=== PATIENT | female | born 1975 | race Caucasian/White ===

== ENCOUNTER 2020-01-13 21:32 | Inpatient (IN) | payer MEDICAID, OTHER ==
[~2020-01-13] VITALS: Ht 160 cm; Wt 57.9 kg
[2020-01-13] MEDS ORDERED: KETOROLAC 30 MG/1 ML ONE (21:49)
[2020-01-13] MEDS ORDERED: ONDANSETRON 2MG/ML, 2ML ONE (21:50)
[2020-01-13] MEDS ORDERED: MORPHINE SULFATE 4 MG/ML, 1ML ONE (21:50)
[2020-01-13] MEDS ORDERED: MORPHINE SULFATE 4 MG/ML, 1ML IVPush PRN (22:00)
[2020-01-13] MEDS ORDERED: SODIUM CHLORIDE FLUSH 10ML SYR IVF ONE (22:00)
[2020-01-13] MEDS ORDERED: ONDANSETRON 2MG/ML, 2ML IVPush ONE (22:00)
[2020-01-13] MEDS ORDERED: KETOROLAC 30 MG/1 ML IVPush ONE (22:00)
[2020-01-13] MEDS ORDERED: SODIUM CHLORIDE 0.9% 1,000ML IVBOLUS ONE (22:00)
[2020-01-13 22:11] LABS: BASOPHILS # (AUTO) 0.02 x10^3/uL (0-0.1); BASOPHILS % (AUTO) 0 % (0-1); EOSINOPHILS # (AUTO) 0.47 x10^3/uL (0-0.4); EOSINOPHILS % (AUTO) 3 % (1-7); LYMPHOCYTES # (AUTO) 1.52 x10^3/uL (1-3.4); LYMPHOCYTES % (AUTO) 11 % (22-44); MD NO; MEAN CORPUSCULAR HEMOGLOBIN 30.8 pg (27.0-34.8); MEAN CORPUSCULAR HGB CONC 33.7 g/dL (32.4-35.8); MEAN CORPUSCULAR VOLUME 91.5 fL (80-100); MEAN PLATELET VOLUME 7.6 fL (7.4-10.4); MONOCYTES # (AUTO) 0.95 x10^3/uL (0.2-0.8); MONOCYTES % (AUTO) 7 % (2-9); NEUTROPHILS # (AUTO) 10.63 x10^3/uL (1.8-6.8); NEUTROPHILS % (AUTO) 78 % (42-75); PLATELET COUNT 424 x10^3/uL (130-400); RED BLOOD COUNT 4.17 x10^6/uL (3.82-5.3); RED CELL DISTRIBUTION WIDTH 13.4 % (9.6-15.2)
[2020-01-13 22:23] LABS: MICROSCOPIC NOT IND
[2020-01-13 22:27] LABS: ALANINE AMINOTRANSFERASE 16 U/L (12-78); ALBUMIN 3.5 g/dL (3.4-5.0); ANION GAP 8 mmol/L (5-15); CHLORIDE 104 mmol/L (98-107); CREATININE 0.61 mg/dL (0.55-1.02)
--- NOTE | 2020-01-13 22:28 | NUR ---
THIS IS A 44 YO F W/ C/O LT FLANK PAIN 08/03 THAT STARTED THIS MORNING. DENIES N/V/D. PT IS TACHYCARDIC, OTHER VS WDL, NADN. PIV STARTED, LABS DRAWN, PT MEDICATED PER EMAR. PT RESTING ON GURNEY W/ CALL LIGHT IN REACH. AWAITING CT.
[2020-01-13 22:31] LABS: ALKALINE PHOSPHATASE 84 U/L (45-117); BILIRUBIN,TOTAL 0.4 mg/dL (0.2-1.0); TOTAL PROTEIN 8.7 g/dL (6.4-8.2)
[2020-01-13 22:43] LABS: CULTURE INDICATED? NO
[2020-01-13] MEDS ORDERED: OMNIPAQUE 350 MG/ML, 100ML BOTTLE ONE (23:23)
--- NOTE | 2020-01-13 23:33 | NUR ---
PT AMBULATED TO THE BR W/ A STEADY GAIT.
[2020-01-14] MEDS ORDERED: PIPERACILLIN/TAZO/PMX 3.375GM 50 ML IV ONE
[2020-01-14] MEDS ORDERED: MORPHINE SULFATE 4 MG/ML, 1ML ONE (01:05)
[2020-01-14] MEDS ORDERED: PIPERACILLIN/TAZO/PMX 3.375GM 50 ML ONE (01:29)
[2020-01-14] MEDS: PIPERACILLIN/TAZO/PMX 3.375GM 50 ML IV SCH ×4 (01:30→19:32)
[2020-01-14] MEDS ORDERED: VANCOMYCIN PER PHARMACY MC PRN ×2 (01:30)
[2020-01-14] MEDS ORDERED: VANCOMYCIN PMX 1GM/200ML 200 ML IV ONE (01:30)
[2020-01-14 03:59] VITALS: BP 98/63
[2020-01-14] MEDS ORDERED: PHARMACOKINETIC MONITORING MC PRN (04:00)
[2020-01-14] MEDS: morphine SULFATE 10 MG/ML, 1ML IVPush PRN (05:11)
[2020-01-14 05:23] LABS: BASOPHILS # (AUTO) 0.06 x10^3/uL (0-0.1); BASOPHILS % (AUTO) 1 % (0-1); EOSINOPHILS # (AUTO) 0.76 x10^3/uL (0-0.4); EOSINOPHILS % (AUTO) 7 % (1-7); LYMPHOCYTES # (AUTO) 1.88 x10^3/uL (1-3.4); LYMPHOCYTES % (AUTO) 17 % (22-44); MD NO; MEAN CORPUSCULAR HEMOGLOBIN 30.5 pg (27.0-34.8); MEAN CORPUSCULAR HGB CONC 33.6 g/dL (32.4-35.8); MEAN CORPUSCULAR VOLUME 90.7 fL (80-100); MEAN PLATELET VOLUME 7.5 fL (7.4-10.4); MONOCYTES # (AUTO) 1.15 x10^3/uL (0.2-0.8); MONOCYTES % (AUTO) 11 % (2-9); NEUTROPHILS # (AUTO) 6.98 x10^3/uL (1.8-6.8); NEUTROPHILS % (AUTO) 65 % (42-75); PLATELET COUNT 352 x10^3/uL (130-400); RED BLOOD COUNT 3.82 x10^6/uL (3.82-5.3); RED CELL DISTRIBUTION WIDTH 13.3 % (9.6-15.2)
[2020-01-14 05:35] LABS: ANION GAP 4 mmol/L (5-15); CALCIUM 8.5 mg/dL (8.5-10.1); CHLORIDE 109 mmol/L (98-107); CREATININE 0.55 mg/dL (0.55-1.02)
[2020-01-14] MEDS: SENNA/DOCUSATE TABLET PO SCH (08:41)
[2020-01-14] MEDS: KETOROLAC 30 MG/1 ML IV PRN ×3 (08:41→20:19)
[2020-01-14 08:50] VITALS: BP 86/60
[2020-01-14] MEDS: ACETAMINOPHEN 325 MG TABLET PO PRN ×4 (09:03→23:34)
[2020-01-14] MEDS: VANCOMYCIN PMX 1GM/200ML 200 ML IV SCH (14:28)
[2020-01-14 14:36] VITALS: BP 96/60
[2020-01-14 19:36] VITALS: BP 102/67
[2020-01-15] MEDS: PIPERACILLIN/TAZO/PMX 3.375GM 50 ML IV SCH ×4 (01:30→20:34)
[2020-01-15] MEDS: KETOROLAC 30 MG/1 ML IV PRN ×4 (01:30→23:06)
[2020-01-15 01:34] VITALS: BP 95/49
[2020-01-15] MEDS: morphine SULFATE 10 MG/ML, 1ML IVPush PRN ×3 (01:41→22:28)
[2020-01-15] MEDS: VANCOMYCIN PMX 1GM/200ML 200 ML IV SCH ×2 (02:37→15:12)
[2020-01-15] MEDS: ACETAMINOPHEN 325 MG TABLET PO PRN ×2 (04:16→10:01)
[2020-01-15] MEDS: ONDANSETRON 2MG/ML, 2ML IVPush PRN ×2 (06:46→22:29)
[2020-01-15] MEDS: SENNA/DOCUSATE TABLET PO SCH (07:50)
[2020-01-15 08:06] VITALS: BP 108/61
[2020-01-15 09:33] VITALS: BP 102/67
[2020-01-15 13:18] VITALS: BP 112/53
[2020-01-15] MEDS: OXYcodone/APAP 5/325MG TABLET PO PRN (13:47)
[2020-01-15 19:59] VITALS: BP 98/61
[2020-01-15 23:37] VITALS: BP 109/64
[2020-01-16 02:03] VITALS: BP 107/46
[2020-01-16] MEDS: PIPERACILLIN/TAZO/PMX 3.375GM 50 ML IV SCH ×2 (02:21→07:41)
[2020-01-16] MEDS: VANCOMYCIN PMX 1GM/200ML 200 ML IV SCH (03:56)
[2020-01-16] MEDS: morphine SULFATE 10 MG/ML, 1ML IVPush PRN ×3 (03:57→12:13)
[2020-01-16 04:16] VITALS: BP 110/59
[2020-01-16 06:35] VITALS: BP 92/62
[2020-01-16] MEDS: KETOROLAC 30 MG/1 ML IV PRN ×2 (06:41→18:16)
[2020-01-16] MEDS: SENNA/DOCUSATE TABLET PO SCH (07:41)
[2020-01-16 13:36] VITALS: BP 95/67
[2020-01-16] MEDS ORDERED: VANCOMYCIN 1,100 MG in SODIUM CHLORIDE 0.9% 250 ML IV SCH (14:00)
[2020-01-16] MEDS: GUAIFENESIN ER 600 MG TABLET PO SCH ×3 (14:05→20:00)
[2020-01-16] MEDS: AMPICILLIN/SULBACTAM 3 GM in SODIUM CHLORIDE 0.9% 100 ML IV SCH ×3 (14:05→21:27)
[2020-01-16] MEDS: ONDANSETRON 2MG/ML, 2ML IVPush PRN (14:06)
[2020-01-16 15:22] LABS: HCT (SEDRATE) 32.7 % (34.6-47.8)
[2020-01-16 19:36] VITALS: BP 89/58
[2020-01-16] MEDS: TRAZODONE 50MG TABLET PO PRN (20:01)
[2020-01-17 00:22] VITALS: BP 106/72
[2020-01-17] MEDS: AMPICILLIN/SULBACTAM 3 GM in SODIUM CHLORIDE 0.9% 100 ML IV SCH ×4 (03:57→23:23)
[2020-01-17] MEDS: morphine SULFATE 10 MG/ML, 1ML IVPush PRN ×3 (04:56→18:19)
[2020-01-17 05:17] LABS: BASOPHILS # (AUTO) 0.02 x10^3/uL (0-0.1); BASOPHILS % (AUTO) 0 % (0-1); EOSINOPHILS # (AUTO) 0.36 x10^3/uL (0-0.4); EOSINOPHILS % (AUTO) 4 % (1-7); LYMPHOCYTES # (AUTO) 1.04 x10^3/uL (1-3.4); LYMPHOCYTES % (AUTO) 11 % (22-44); MD NO; MEAN CORPUSCULAR HEMOGLOBIN 30.3 pg (27.0-34.8); MEAN CORPUSCULAR HGB CONC 33.1 g/dL (32.4-35.8); MEAN CORPUSCULAR VOLUME 91.4 fL (80-100); MEAN PLATELET VOLUME 7.1 fL (7.4-10.4); MONOCYTES # (AUTO) 0.79 x10^3/uL (0.2-0.8); MONOCYTES % (AUTO) 8 % (2-9); NEUTROPHILS # (AUTO) 7.45 x10^3/uL (1.8-6.8); NEUTROPHILS % (AUTO) 77 % (42-75); PLATELET COUNT 360 x10^3/uL (130-400); RED BLOOD COUNT 3.56 x10^6/uL (3.82-5.3); RED CELL DISTRIBUTION WIDTH 12.9 % (9.6-15.2)
[2020-01-17 05:27] LABS: ALBUMIN 2.4 g/dL (3.4-5.0); ANION GAP 7 mmol/L (5-15); CALCIUM 8.3 mg/dL (8.5-10.1); CHLORIDE 110 mmol/L (98-107)
[2020-01-17 05:28] LABS: CREATININE 0.93 mg/dL (0.55-1.02)
[2020-01-17 07:24] VITALS: BP 94/67
[2020-01-17] MEDS ORDERED: FENTANYL PF 100 MCG/2ML ONE (09:49)
[2020-01-17] MEDS ORDERED: NALOXONE 1 MG/ML, 2ML ONE (09:49)
[2020-01-17] MEDS ORDERED: MIDAZOLAM 1 MG/ML, 5ML ONE (10:16)
[2020-01-17] MEDS ORDERED: DIPHENHYDRAMINE 50 MG/ML, 1ML ONE (10:24)
[2020-01-17] MEDS: SENNA/DOCUSATE TABLET PO SCH (11:38)
[2020-01-17] MEDS: GUAIFENESIN ER 600 MG TABLET PO SCH ×3 (11:39→20:16)
[2020-01-17 13:51] VITALS: BP 98/60
[2020-01-17] MEDS: TRAZODONE 50MG TABLET PO PRN (20:16)
[2020-01-17] MEDS: ACETAMINOPHEN 325 MG TABLET PO PRN (20:16)
[2020-01-17 20:30] VITALS: BP 88/51
[2020-01-18 00:29] VITALS: BP 89/60
[2020-01-18] MEDS: morphine SULFATE 10 MG/ML, 1ML IVPush PRN ×6 (00:46→19:56)
[2020-01-18] MEDS: AMPICILLIN/SULBACTAM 3 GM in SODIUM CHLORIDE 0.9% 100 ML IV SCH ×4 (05:33→23:57)
[2020-01-18] MEDS: SENNA/DOCUSATE TABLET PO SCH (08:34)
[2020-01-18] MEDS: GUAIFENESIN ER 600 MG TABLET PO SCH ×3 (08:34→21:00)
[2020-01-18 09:26] VITALS: BP 90/60
[2020-01-18 15:59] VITALS: BP 103/71
[2020-01-18 19:51] VITALS: BP 100/62
[2020-01-18] MEDS: TRAZODONE 50MG TABLET PO PRN (21:15)
[2020-01-18] MEDS: ACETAMINOPHEN 325 MG TABLET PO PRN (21:15)
[2020-01-18] MEDS: KETOROLAC 30 MG/1 ML IV PRN (21:34)
[2020-01-18 22:30] VITALS: BP 93/64
[2020-01-19] MEDS: morphine SULFATE 10 MG/ML, 1ML IVPush PRN ×3 (01:49→13:30)
[2020-01-19 05:18] LABS: BASOPHILS # (AUTO) 0.03 x10^3/uL (0-0.1); BASOPHILS % (AUTO) 0 % (0-1); EOSINOPHILS # (AUTO) 0.54 x10^3/uL (0-0.4); EOSINOPHILS % (AUTO) 8 % (1-7); LYMPHOCYTES # (AUTO) 1.48 x10^3/uL (1-3.4); LYMPHOCYTES % (AUTO) 20 % (22-44); MD NO; MEAN CORPUSCULAR HEMOGLOBIN 30.1 pg (27.0-34.8); MEAN CORPUSCULAR HGB CONC 33.1 g/dL (32.4-35.8); MEAN PLATELET VOLUME 6.3 fL (7.4-10.4); MONOCYTES # (AUTO) 0.84 x10^3/uL (0.2-0.8); MONOCYTES % (AUTO) 12 % (2-9); NEUTROPHILS # (AUTO) 4.36 x10^3/uL (1.8-6.8); NEUTROPHILS % (AUTO) 60 % (42-75); PLATELET COUNT 396 x10^3/uL (130-400); RED BLOOD COUNT 3.36 x10^6/uL (3.82-5.3); RED CELL DISTRIBUTION WIDTH 13.3 % (9.6-15.2)
[2020-01-19 05:21] LABS: ALBUMIN 2.1 g/dL (3.4-5.0); ANION GAP 7 mmol/L (5-15); CHLORIDE 109 mmol/L (98-107)
[2020-01-19] MEDS: AMPICILLIN/SULBACTAM 3 GM in SODIUM CHLORIDE 0.9% 100 ML IV SCH ×3 (05:43→21:00)
[2020-01-19 05:45] VITALS: BP 106/74
[2020-01-19 06:29] VITALS: BP 94/65
[2020-01-19] MEDS: GUAIFENESIN ER 600 MG TABLET PO SCH ×3 (07:29→20:28)
[2020-01-19] MEDS: SENNA/DOCUSATE TABLET PO SCH (07:29)
[2020-01-19] MEDS ORDERED: BUPIVACAINE/PF-EPI 0.5% 1:200K ONE (08:39)
[2020-01-19] MEDS ORDERED: FENTANYL PF 250 MCG/5ML ONE (08:47)
[2020-01-19] MEDS ORDERED: MIDAZOLAM 1 MG/ML, 2ML ONE (08:47)
[2020-01-19] MEDS ORDERED: DEXAMETHASONE 4 MG/ML, 1ML ONE (09:51)
[2020-01-19] MEDS ORDERED: ONDANSETRON 2MG/ML, 2ML ONE (09:51)
[2020-01-19] MEDS ORDERED: SUCCINYLCHOLINE 20 MG/ML, 10ML ONE (09:51)
[2020-01-19] MEDS ORDERED: PROPOFOL 10 MG/ML, 20ML ONE (09:51)
[2020-01-19] MEDS ORDERED: SUGAMMADEX 200 MG/2 ML IVPush ONE ×3 (09:51→10:19)
[2020-01-19] MEDS ORDERED: GLYCOPYRROLATE 0.2MG/1ML, 5ML ONE (09:51)
[2020-01-19] MEDS ORDERED: ROCURONIUM 10MG/ML,5ML ONE (09:51)
[2020-01-19] MEDS ORDERED: CEFAZOLIN 1,000 MG ONE (09:51)
[2020-01-19] MEDS ORDERED: NEOSTIGMINE 1 MG/ML, 10ML ONE (09:51)
[2020-01-19] MEDS ORDERED: HYDROmorphone 1 MG/ML, 1ML INJ ONE ×2 (10:27→11:52)
[2020-01-19] MEDS ORDERED: MEPERIDINE/PF 25MG/ML,1ML IVPush PRN (10:30)
[2020-01-19] MEDS ORDERED: ONDANSETRON 2MG/ML, 2ML IV PRN (10:30)
[2020-01-19] MEDS ORDERED: OXYcodone 5 MG/5 ML ORAL.SOL UDC PO PRN (10:30)
[2020-01-19] MEDS ORDERED: PROMETHAZINE 25 MG/ML, 1ML IV PRN (10:30)
[2020-01-19] MEDS ORDERED: FENTANYL PF 100 MCG/2ML IV PRN (10:30)
[2020-01-19] MEDS ORDERED: PROMETHAZINE 25 MG SUPP PR PRN (10:30)
[2020-01-19] MEDS ORDERED: ACETAMINOPHEN 325 MG TABLET PO PRN (10:30)
[2020-01-19] MEDS ORDERED: ALBUTEROL/IPRATROPIUM 2.5MG/0.5MG, 3 ML NPPB PRN (10:30)
[2020-01-19] MEDS ORDERED: LORazepam 2 MG/ML, 1ML IVPush PRN (10:30)
[2020-01-19] MEDS ORDERED: ONDANSETRON ODT 8 MG PO PRN (10:30)
[2020-01-19] MEDS: ACETAMINOPHEN 500 MG TABLET PO SCH ×3 (10:30→20:27)
[2020-01-19] MEDS ORDERED: LORazepam 2 MG/ML, 1ML ONE (10:32)
[2020-01-19] MEDS: HYDROmorphone 2 MG/ML, 1ML IVPush PRN ×6 (10:33→12:35)
[2020-01-19] MEDS ORDERED: MEPERIDINE/PF 25MG/ML,1ML ONE (11:23)
[2020-01-19] MEDS ORDERED: KETOROLAC 30 MG/1 ML ONE (12:08)
[2020-01-19] MEDS: LIDODERM 5% PATCH TD SCH (12:21)
[2020-01-19] MEDS ORDERED: KETOROLAC 30 MG/1 ML IVPush ONE (12:30)
[2020-01-19] MEDS: OXYcodone/APAP 5/325MG TABLET PO PRN ×2 (14:10→21:53)
[2020-01-19] MEDS: HYDROmorphone PCA 30 MG/30 ML IV PRN (15:17)
[2020-01-19 18:34] VITALS: BP 102/70
[2020-01-19] MEDS: DOCUSATE 100 MG CAPSULE PO SCH (20:28)
[2020-01-19 21:51] VITALS: BP 129/68
[2020-01-19] MEDS: ONDANSETRON 2MG/ML, 2ML IVPush PRN (21:53)
[2020-01-20] MEDS ORDERED: CALCIUM CARBONATE 500 MG TAB.CHEW ONE (00:06)
[2020-01-20] MEDS: CALCIUM CARBONATE 500 MG TAB.CHEW PO PRN ×3 (00:13→17:12)
[2020-01-20] MEDS: LIDODERM REMOVE PATCH NOTE XX SCH (00:30)
[2020-01-20 00:36] VITALS: BP 106/73
[2020-01-20] MEDS: AMPICILLIN/SULBACTAM 3 GM in SODIUM CHLORIDE 0.9% 100 ML IV SCH ×4 (02:00→20:34)
[2020-01-20] MEDS: OXYcodone/APAP 5/325MG TABLET PO PRN ×5 (02:00→22:24)
[2020-01-20] MEDS: ACETAMINOPHEN 500 MG TABLET PO SCH ×4 (04:11→20:35)
[2020-01-20 04:15] LABS: BASOPHILS # (AUTO) 0.02 x10^3/uL (0-0.1); BASOPHILS % (AUTO) 0 % (0-1); EOSINOPHILS # (AUTO) 0.24 x10^3/uL (0-0.4); EOSINOPHILS % (AUTO) 3 % (1-7); LYMPHOCYTES # (AUTO) 1.23 x10^3/uL (1-3.4); LYMPHOCYTES % (AUTO) 14 % (22-44); MD NO; MEAN CORPUSCULAR HGB CONC 32.9 g/dL (32.4-35.8); MEAN CORPUSCULAR VOLUME 91.3 fL (80-100); MEAN PLATELET VOLUME 6.4 fL (7.4-10.4); MONOCYTES # (AUTO) 0.52 x10^3/uL (0.2-0.8); MONOCYTES % (AUTO) 6 % (2-9); NEUTROPHILS # (AUTO) 6.73 x10^3/uL (1.8-6.8); NEUTROPHILS % (AUTO) 77 % (42-75); PLATELET COUNT 452 x10^3/uL (130-400); RED BLOOD COUNT 3.29 x10^6/uL (3.82-5.3); RED CELL DISTRIBUTION WIDTH 13.1 % (9.6-15.2)
[2020-01-20 04:39] LABS: ALBUMIN 2.2 g/dL (3.4-5.0); ANION GAP 6 mmol/L (5-15); CALCIUM 8.4 mg/dL (8.5-10.1); CHLORIDE 105 mmol/L (98-107)
[2020-01-20 04:40] LABS: CREATININE 0.68 mg/dL (0.55-1.02)
[2020-01-20] MEDS: HYDROmorphone PCA 30 MG/30 ML IV PRN (07:36)
[2020-01-20] MEDS: GUAIFENESIN ER 600 MG TABLET PO SCH ×3 (07:49→20:35)
[2020-01-20] MEDS: DOCUSATE 100 MG CAPSULE PO SCH ×2 (07:49→20:35)
[2020-01-20] MEDS: SENNA/DOCUSATE TABLET PO SCH (07:49)
[2020-01-20] MEDS: ONDANSETRON 2MG/ML, 2ML IVPush PRN ×2 (07:50→17:12)
[2020-01-20 07:51] VITALS: BP 107/76
[2020-01-20 12:06] VITALS: BP 120/84
[2020-01-20] MEDS: LIDODERM 5% PATCH TD SCH (12:11)
[2020-01-20] MEDS: LACTULOSE 20 GM/30 ML UDC PO SCH ×2 (12:15→20:34)
[2020-01-20] MEDS ORDERED: BISACODYL 10 MG SUPP PR PRN (17:30)
[2020-01-20 18:32] VITALS: BP 105/73
[2020-01-20] MEDS: TRAZODONE 50MG TABLET PO PRN (20:35)
[2020-01-21] MEDS: LIDODERM REMOVE PATCH NOTE XX SCH ×2 (00:30→23:30)
[2020-01-21 02:00] VITALS: BP 117/82
[2020-01-21] MEDS: ONDANSETRON 2MG/ML, 2ML IVPush PRN ×2 (02:37→09:45)
[2020-01-21] MEDS: AMPICILLIN/SULBACTAM 3 GM in SODIUM CHLORIDE 0.9% 100 ML IV SCH ×4 (02:37→20:06)
[2020-01-21] MEDS: OXYcodone/APAP 5/325MG TABLET PO PRN (02:38)
[2020-01-21] MEDS ORDERED: OXYcodone 5 MG/5 ML ORAL.SOL UDC PO PRN (05:30)
[2020-01-21] MEDS: OXYcodone IR 5MG TABLET PO PRN ×4 (06:23→20:07)
[2020-01-21] MEDS: LACTULOSE 20 GM/30 ML UDC PO SCH (08:02)
[2020-01-21] MEDS: DOCUSATE 100 MG CAPSULE PO SCH (08:02)
[2020-01-21] MEDS: GUAIFENESIN ER 600 MG TABLET PO SCH ×3 (08:02→20:08)
[2020-01-21] MEDS: SENNA/DOCUSATE TABLET PO SCH (08:02)
[2020-01-21 09:02] VITALS: BP 114/61
[2020-01-21 09:45] LABS: BASOPHILS # (AUTO) 0.06 x10^3/uL (0-0.1); BASOPHILS % (AUTO) 1 % (0-1); EOSINOPHILS # (AUTO) 0.69 x10^3/uL (0-0.4); EOSINOPHILS % (AUTO) 8 % (1-7); LYMPHOCYTES # (AUTO) 1.33 x10^3/uL (1-3.4); LYMPHOCYTES % (AUTO) 15 % (22-44); MD NO; MEAN CORPUSCULAR HGB CONC 32.8 g/dL (32.4-35.8); MEAN CORPUSCULAR VOLUME 91.5 fL (80-100); MEAN PLATELET VOLUME 6.2 fL (7.4-10.4); MONOCYTES # (AUTO) 0.47 x10^3/uL (0.2-0.8); MONOCYTES % (AUTO) 5 % (2-9); NEUTROPHILS # (AUTO) 6.25 x10^3/uL (1.8-6.8); NEUTROPHILS % (AUTO) 71 % (42-75); PLATELET COUNT 486 x10^3/uL (130-400); RED BLOOD COUNT 3.53 x10^6/uL (3.82-5.3); RED CELL DISTRIBUTION WIDTH 13.2 % (9.6-15.2)
[2020-01-21] MEDS: MORPHINE SULFATE 4 MG/ML, 1ML IVPush PRN ×4 (09:51→22:15)
[2020-01-21] MEDS ORDERED: LACTULOSE 20 GM/30 ML UDC PO PRN (10:00)
[2020-01-21 10:06] LABS: ANION GAP 10 mmol/L (5-15); CALCIUM 8.7 mg/dL (8.5-10.1); CHLORIDE 107 mmol/L (98-107); CREATININE 0.64 mg/dL (0.55-1.02)
[2020-01-21] MEDS: LIDODERM 5% PATCH TD SCH (12:18)
[2020-01-21 13:02] VITALS: BP 107/72
[2020-01-21 18:43] VITALS: BP 111/77
[2020-01-21] MEDS: TRAZODONE 50MG TABLET PO PRN (20:08)
[2020-01-21 22:12] VITALS: BP 110/80
[2020-01-22] VITALS (7 sets, daily range): BP systolic 92–112; BP diastolic 54–79
[2020-01-22] MEDS: OXYcodone IR 5MG TABLET PO PRN ×5 (00:39→20:37)
[2020-01-22] MEDS: MORPHINE SULFATE 4 MG/ML, 1ML IVPush PRN ×6 (02:59→23:16)
[2020-01-22] MEDS: ONDANSETRON 2MG/ML, 2ML IVPush PRN (03:07)
[2020-01-22] MEDS: AMPICILLIN/SULBACTAM 3 GM in SODIUM CHLORIDE 0.9% 100 ML IV SCH ×4 (03:07→20:37)
[2020-01-22 05:58] LABS: BASOPHILS # (AUTO) 0.04 x10^3/uL (0-0.1); BASOPHILS % (AUTO) 0 % (0-1); EOSINOPHILS % (AUTO) 7 % (1-7); LYMPHOCYTES % (AUTO) 18 % (22-44); MD NO; MEAN CORPUSCULAR HEMOGLOBIN 29.9 pg (27.0-34.8); MEAN CORPUSCULAR VOLUME 90.6 fL (80-100); MEAN PLATELET VOLUME 6.6 fL (7.4-10.4); MONOCYTES # (AUTO) 0.62 x10^3/uL (0.2-0.8); MONOCYTES % (AUTO) 6 % (2-9); NEUTROPHILS # (AUTO) 6.66 x10^3/uL (1.8-6.8); NEUTROPHILS % (AUTO) 69 % (42-75); PLATELET COUNT 526 x10^3/uL (130-400); RED BLOOD COUNT 3.71 x10^6/uL (3.82-5.3); RED CELL DISTRIBUTION WIDTH 13.1 % (9.6-15.2)
[2020-01-22 06:12] LABS: ALANINE AMINOTRANSFERASE 15 U/L (12-78); ALBUMIN 2.3 g/dL (3.4-5.0); ANION GAP 8 mmol/L (5-15); CALCIUM 8.3 mg/dL (8.5-10.1); CHLORIDE 106 mmol/L (98-107); CREATININE 0.69 mg/dL (0.55-1.02)
[2020-01-22 06:15] LABS: ALKALINE PHOSPHATASE 78 U/L (45-117); BILIRUBIN,TOTAL 0.3 mg/dL (0.2-1.0); TOTAL PROTEIN 6.5 g/dL (6.4-8.2)
[2020-01-22] MEDS: SENNA/DOCUSATE TABLET PO SCH (08:35)
[2020-01-22] MEDS: GUAIFENESIN ER 600 MG TABLET PO SCH ×3 (08:35→20:37)
[2020-01-22] MEDS: LIDODERM 5% PATCH TD SCH (15:02)
[2020-01-22] MEDS: TRAZODONE 50MG TABLET PO PRN (20:51)
[2020-01-23 00:57] VITALS: BP 106/57
[2020-01-23] MEDS: OXYcodone IR 5MG TABLET PO PRN ×5 (01:58→22:34)
[2020-01-23] MEDS: LIDODERM REMOVE PATCH NOTE XX SCH (03:30)
[2020-01-23] MEDS: AMPICILLIN/SULBACTAM 3 GM in SODIUM CHLORIDE 0.9% 100 ML IV SCH ×4 (04:12→20:30)
[2020-01-23] MEDS: MORPHINE SULFATE 4 MG/ML, 1ML IVPush PRN ×4 (04:12→19:46)
[2020-01-23 05:16] VITALS: BP 114/72
[2020-01-23 05:57] LABS: BASOPHILS # (AUTO) 0.03 x10^3/uL (0-0.1); BASOPHILS % (AUTO) 0 % (0-1); EOSINOPHILS # (AUTO) 0.67 x10^3/uL (0-0.4); EOSINOPHILS % (AUTO) 8 % (1-7); LYMPHOCYTES # (AUTO) 2.08 x10^3/uL (1-3.4); LYMPHOCYTES % (AUTO) 24 % (22-44); MD NO; MEAN CORPUSCULAR HGB CONC 32.9 g/dL (32.4-35.8); MEAN CORPUSCULAR VOLUME 90.9 fL (80-100); MEAN PLATELET VOLUME 6.7 fL (7.4-10.4); MONOCYTES # (AUTO) 0.71 x10^3/uL (0.2-0.8); MONOCYTES % (AUTO) 8 % (2-9); NEUTROPHILS % (AUTO) 60 % (42-75); PLATELET COUNT 577 x10^3/uL (130-400); RED CELL DISTRIBUTION WIDTH 13.4 % (9.6-15.2)
[2020-01-23 06:09] LABS: ANION GAP 9 mmol/L (5-15); CALCIUM 9.1 mg/dL (8.5-10.1); CHLORIDE 105 mmol/L (98-107)
[2020-01-23 06:11] LABS: CREATININE 0.77 mg/dL (0.55-1.02)
[2020-01-23 06:42] VITALS: BP 96/64
[2020-01-23 09:02] VITALS: BP 104/66
[2020-01-23] MEDS: GUAIFENESIN ER 600 MG TABLET PO SCH ×3 (09:03→20:29)
[2020-01-23] MEDS: SENNA/DOCUSATE TABLET PO SCH (09:03)
[2020-01-23 12:02] VITALS: BP 103/64
[2020-01-23] MEDS: LIDODERM 5% PATCH TD SCH (15:00)
[2020-01-23] MEDS ORDERED: OMNIPAQUE 350 MG/ML, 75ML BOTTLE ONE (17:58)
[2020-01-23 18:44] VITALS: BP 101/68
[2020-01-23] MEDS: TRAZODONE 50MG TABLET PO PRN (20:31)
[2020-01-24 02:00] VITALS: BP 112/80
[2020-01-24] MEDS: MORPHINE SULFATE 4 MG/ML, 1ML IVPush PRN ×3 (02:06→14:38)
[2020-01-24] MEDS: AMPICILLIN/SULBACTAM 3 GM in SODIUM CHLORIDE 0.9% 100 ML IV SCH ×3 (02:52→14:38)
[2020-01-24] MEDS: LIDODERM REMOVE PATCH NOTE XX SCH (02:52)
[2020-01-24] MEDS: OXYcodone IR 5MG TABLET PO PRN ×3 (05:28→16:52)
[2020-01-24 05:39] LABS: BASOPHILS # (AUTO) 0.04 x10^3/uL (0-0.1); BASOPHILS % (AUTO) 1 % (0-1); EOSINOPHILS # (AUTO) 0.59 x10^3/uL (0-0.4); EOSINOPHILS % (AUTO) 7 % (1-7); LYMPHOCYTES # (AUTO) 1.96 x10^3/uL (1-3.4); LYMPHOCYTES % (AUTO) 24 % (22-44); MD NO; MEAN CORPUSCULAR HEMOGLOBIN 29.8 pg (27.0-34.8); MEAN CORPUSCULAR HGB CONC 32.7 g/dL (32.4-35.8); MEAN CORPUSCULAR VOLUME 91.2 fL (80-100); MEAN PLATELET VOLUME 6.9 fL (7.4-10.4); MONOCYTES # (AUTO) 0.57 x10^3/uL (0.2-0.8); MONOCYTES % (AUTO) 7 % (2-9); NEUTROPHILS # (AUTO) 4.96 x10^3/uL (1.8-6.8); NEUTROPHILS % (AUTO) 61 % (42-75); PLATELET COUNT 562 x10^3/uL (130-400); RED BLOOD COUNT 3.76 x10^6/uL (3.82-5.3); RED CELL DISTRIBUTION WIDTH 13.3 % (9.6-15.2)
[2020-01-24 05:52] LABS: ANION GAP 7 mmol/L (5-15); CALCIUM 8.5 mg/dL (8.5-10.1); CHLORIDE 105 mmol/L (98-107); CREATININE 0.65 mg/dL (0.55-1.02)
[2020-01-24 06:19] VITALS: BP 98/62
[2020-01-24 08:25] VITALS: BP 120/80
[2020-01-24] MEDS: SENNA/DOCUSATE TABLET PO SCH (08:52)
[2020-01-24] MEDS: GUAIFENESIN ER 600 MG TABLET PO SCH ×2 (08:52→16:52)
[2020-01-24 12:10] VITALS: BP 107/75
[2020-01-24] MEDS: LIDODERM 5% PATCH TD SCH (14:38)
[2020-01-24] MEDS ORDERED: SENN-193 PO (16:47)
[2020-01-24] MEDS ORDERED: BISA10SU4 PR (16:47)
[2020-01-24] MEDS ORDERED: TRAZ50TA66 PO (16:47)
[2020-01-24] MEDS ORDERED: AMPI3VIA IV (16:47)
[2020-01-24] MEDS ORDERED: LIDO700A20 TD (16:47)
[2020-01-24] MEDS ORDERED: GUAI600T31 PO (16:47)
[2020-01-24] MEDS ORDERED: OXYC5TAB3 PO (16:47)
[2020-01-24] MEDS ORDERED: CALC200T24 PO (16:47)
[2020-01-24] MEDS ORDERED: LACTOBACILLUS CHEW TABLET PO SCH (21:00)
== END 2020-01-24 18:00 | DRG 710 ==
LOC: ED 01-14 00:11 → EDIP 01-14 01:52 → 3WST 01-14 03:00 → 3N 01-15 09:31 → 4NE 01-18 22:26 → 4WST 01-19 12:44 → 4EST 01-20 13:00
PROVIDERS: ADMIT Family Medicine; ATTEND Internal Medicine
PROC: 0W9B3ZZ Drainage of Left Pleural Cavity, Percutaneous Approach (ICD-10-PCS; 2020-01-17)
PROC: 0BBJ3ZX Excision of Left Lower Lung Lobe, Percutaneous Approach, Diagnostic (ICD-10-PCS; 2020-01-17)
PROC: 0BNL4ZZ Release Left Lung, Percutaneous Endoscopic Approach (ICD-10-PCS; principal; 2020-01-19 08:30)
DX: A41.9 Sepsis, unspecified organism (principal); J85.1 Abscess of lung with pneumonia; J15.9 Unspecified bacterial pneumonia; E88.09 Other disorders of plasma-protein metabolism, not elsewhere classified; D64.9 Anemia, unspecified; J91.8 Pleural effusion in other conditions classified elsewhere; N20.0 Calculus of kidney; R09.02 Hypoxemia; Z82.49 Family history of ischemic heart disease and other diseases of the circulatory system; Z82.61 Family history of arthritis; Z87.440 Personal history of urinary (tract) infections; M06.9 Rheumatoid arthritis, unspecified
CPT/HCPCS: 32555; 36415; 71045; 71260; 71275; 74176; 77002; 80048; 80053; 80069; 80202; 81003; 82150; 82945; 83605; 83615; 83690; 83735; 83986; 84145; 84157; 84703; 85025; 85379; 85651; 86140; 86480; 87015; 87040; 87070; 87075; 87081; 87102; 87116; 87176; 87205; 87206; 87305; 87449; 88112; 88305; 89051; 93005; 96361; 96374; 96375; 99156; 99157; C1729; G0378; J0295; J0690; J1100; J1170; J1885; J2250; J2405; J2543; J2704; J2710; J3010; J3370; Q9967; J0330; J1200; J2060; J2175; J2270; J2310; J7030